=== PATIENT | female | born 1990 | race Caucasian/White ===

== ENCOUNTER 2020-01-06 21:54 | Emergency (ER) | payer BC, SELFPAY ==
[2020-01-06 22:09] VITALS: BP 175/91; PULSE 127; RESP 16; TEMP 37.1; BMI 42.7
--- NOTE | 2020-01-06 22:27 | US_ITS ---
WS: [id number] EARLY OBSTETRICAL ULTRASOUND (<14 WEEKS). HISTORY: heavy bleeding at 11 weeks COMPARISON: None available. Uterus is anteverted and slightly enlarged. No intrauterine gestation identified. The endometrium is thickened and heterogeneous measuring 2.2 cm. There is increased complex material in the cervix consistent with retained products of conception and bleeding. Both ovaries are normal size. Small amount of free fluid in the cul-de-sac. US/US OB <=14 wk fetus w transvag IMPRESSION: 1. Findings consistent with incomplete spontaneous . No gestational sa c or pole. 2. Retained products of the conception and blood products within the endometri um and cervical canal.
--- NOTE | 2020-01-06 22:28 | W.ED.PREGNAN ---
HPI - General: Chief complaint: Vaginal Bleeding Stated complaint: possible miscarriage/11 weeks Time Seen by Provider: 01/06/20 22:18 History of Present Illness: HPI Narrative: Patient with history of PCOS hypertension started with bleeding today want to see her physician they did not do an ultrasound but the bleeding was not enough to really matter and then patient started having heavy bleeding this evening and comes into the ER patient did receive RhoGam shot at the office today because she is O- MD Complaint: vaginal bleeding Onset (ago): hour(s) Severity: moderate Quality: Cramping Radiation: abdomen Vaginal bleeding: heavy Date of Last Menstrual Period: 10/21/19 Patient : Yes OB History - Current : hypertension and other (PCOS) care: followed by OB Associated symptoms: Reports no associated symptoms; Deny abdominal pain, headache(s), nausea or vomiting Review of Systems Const: Denies: fever(s), chills or body aches Eyes: Denies: change in vision or blurry vision ENMT: Denies: throat pain or nasal congestion Card: Denies: chest pain or dyspnea on exertion Resp: Denies: dyspnea, productive cough or non-productive cough GI: Denies: abdominal pain, nausea or vomiting : Reports: vaginal bleeding Musc: Denies: extremity pain Skin/Breast: Denies: rash Neuro: Denies: headache(s) Psych: Denies: anxiety or depression [place]/Lymph: Denies: easy bruising PFSH ED PFSH: Social History Smoking and tobacco status: current some day smoker Female Reproductive History: Date of last menstrual period: 10/21/19 Physical Exam Const: COMMON NORMALS: no acute distress, average body habitus and patient oriented x3 HENMT: COMMON NORMALS: normocephalic HEAD & SCALP: normal to inspection and normocephalic FACE & SINUS: normal facial exam Eye: COMMON NORMALS: conjunctivae normal GENERAL EYE: appearance normal, both eyes and all related structures CONJUNCTIVA: Yes conjunctivae normal Neck/C-Spine: COMMON NORMALS: no JVD Chest: COMMONS NORMALS: normal inspection of the chest Resp: COMMON NORMALS: normal respiratory effort and clear to auscultation bilaterally AUSCULTATION: clear to auscultation bilaterally Cardio: COMMON NORMALS: no JVD, regular rate and regular rhythm RATE: regular rate RHYTHM: regular rhythm GI: COMMON NORMALS: Normal to inspection, nondistended, normoactive bowel sounds present Extremity: COMMON NORMALS: normal to inspection and full ROM Neuro: COMMON NORMALS: patient oriented x3 Course Vital Signs: Vital signs: Vital Signs Temperature 98.8 F 01/06/20 22:09 Pulse Rate 138 H 01/06/20 23:33 Respiratory Rate 18 01/06/20 23:33 Blood Pressure 161/100 01/06/20 23:33 Pulse Oximetry 96 01/06/20 23:33 MDM - OB/Uterine Contractions MDM Narrative: Medical decision making narrative: blow mold technician says there is no baby in the womb there is no free fluid cervix is closed bleeding is diminishing discussed case Dr. Page Lab Data: Labs: Lab Results 01/06/20 01/06/20 Range/Units 22:30 22:30 WBC 14.4 H (4.0-10.0) 10^3/ uL RBC 4.60 (4.1-5.3) 10^6/u L Hgb 14.4 (11.5-15.3) g/dL Hct 41.5 (37.0-47.0) % MCV 90.2 (81-99) fL MCH 31.3 (28.0-34.0) pg MCHC 34.7 (30.0-36.0) g/dL RDW 12.0 L (12.1-15.1) % Plt Count 434 H (130-400) 10^3/c mm MPV 8.6 (7.4-10.4) fL Neut % (Auto) 62.4 % Lymph % (Auto) 30.4 % [place] % (Auto) 4.0 % Eos % (Auto) 2.0 % Baso % (Auto) 0.6 % Neut # (Auto) 9.0 H (1.8-7.7) 10^3/u L Lymph # (Auto) 4.4 (0.8-4.8) 10^3/u L [place] # (Auto) 0.6 (0.2-0.9) 10^3/u L Eos # (Auto) 0.3 (0.0-0.8) 10^3/u L Baso # (Auto) 0.1 (0.0-0.1) 10^3/u L Nucleated RBC % (a uto) 0 % Nucleated RBCs # 0.0 /100WBC Ser , Karin i-Qnt 2496.00 mIU/mL Discharge Plan Discharge Patient Disposition: Home, Self-Care Clinical Impression: Miscarriage Condition: Stable Prescriptions: No Action metformin 1,000 mg Tablet 1,000 mg PO BID RF: 0 Prozac 20 mg Capsule 20 mg PO DAILY RF: 0 Prevacid 15 mg Capsule,Delayed Release(Dr/Ec) 15 mg PO DAILY RF: 0 PNV cmb#[id number]-[id number] fumarate-FA [] 28 mg iron- 800 mcg Tablet 1 tab PO DAILY RF: 0 Discharge Orders: Discharge Order (Routine); Ordered 01/06/20 Ordered By: Fadi Argueta Discharge Diet: Usual diet Discharge Activity: Increase activity as tolerated Patient Instructions: Spontaneous Miscarriage (ED) Activity Restrictions/Additional Instructions: Follow-up with your OB doctor in the morning. Coding Level of Care Code ED [employer] for Devin Fwd Exam Comprehensive
[2020-01-06 22:34] LABS: Basophils # 0.1 10^3/uL (0.0-0.1); Basophils % 0.6 %; Eosinophils # 0.3 10^3/uL (0.0-0.8); Hematocrit 41.5 % (37.0-47.0); Hemoglobin 14.4 g/dL (11.5-15.3); Lymphocytes # 4.4 10^3/uL (0.8-4.8); Lymphocytes % 30.4 %; Mean Corpuscular HGB Conc 34.7 g/dL (30.0-36.0); Mean Corpuscular Hemoglobin 31.3 pg (28.0-34.0); Mean Corpuscular Volume 90.2 fL (81-99); Mean Platelet Volume 8.6 fL (7.4-10.4); Monocytes # 0.6 10^3/uL (0.2-0.9); Neutrophils % 62.4 %; Nucleated Red Blood Cells % 0 %; Platelet Count 434 10^3/cmm (130-400); White Blood Count 14.4 10^3/uL (4.0-10.0)
[2020-01-06 23:33] VITALS: BP 161/100; PULSE 138; RESP 18; O2SAT 96
[2020-01-06 23:41] LABS: Urine Appearance Cloudy (CLEAR); Urine Color Red (Yellow)
[2020-01-07] LABS: Add Urine Culture? Yes; Add Urine Microscopic? YES; Bacteria Urine 1+; Bilirubin Urine Neg (NEGATIVE); Blood Urine 3+ (Negative); Glucose Urine UA 2+ (Normal); Ketones Urine Negative (Negative); Leukocyte Esterase Urine Negative (Negative); Nitrate Urine Negative (Negative); Protein Urine 3+ (Negative); RBC Urine >100 /hpf (0-2); Squamous Epithelial Cell Urine 0-4 (0-5); Urobilinogen Urine Norm (Negative); pH Urine 6 (5-7)
== END 2020-01-06 23:39 | disposition home or self-care (01) ==
PROVIDERS: Emergency Medicine; Emergency Provider Nurse Practitioner Family
DX: O03.9 Complete or unspecified spontaneous abortion without complication (principal); O99.331 Smoking (tobacco) complicating pregnancy, first trimester; F17.210 Nicotine dependence, cigarettes, uncomplicated; Z3A.11 11 weeks gestation of pregnancy
CPT/HCPCS: 12345; 36415; 76801; 76817; 81001; 81003; 84702; 85025; 86900; 87086; 99281; 99283

== ENCOUNTER 2022-09-04 16:48 | Emergency (ER) | payer OTHER, SELFPAY ==
[2022-09-04 16:54] VITALS: BP 180/113; PULSE 126; RESP 18; TEMP 36.7; O2SAT 98; BMI 40.6
--- NOTE | 2022-09-04 17:34 | USR_ITS ---
PROCEDURE INFORMATION: Exam: US First Trimester, Transabdominal and US , Transvaginal Exam date and time: 09/04/2022 5:55 PM Age: 31 years old Clinical indication: Lmp or gestational age (in weeks): 9w5d; Antepartum complications; Bleeding; ; Additional info: Vaginal bleeding LABS AND CLINICAL REPORTS: Serum Choriogonadotropin (HCG): 57067 mIU/mL Last menstrual period start date: 06/30/2022 Gestational age (Established): 9 w 3 d Estimated due date (Established): 04/06/2023 TECHNIQUE: Imaging protocol: Real-time transabdominal obstetrical ultrasound of the maternal pelvis and a first trimester , less than 14 weeks 0 days, with image documentation. Transvaginal imaging was used for better evaluation of the fetus, adnexa, and/or cervix. COMPARISON: US OB <=14 wk fetus w transvag 01/06/2020 11:01 PM FINDINGS: Gestation: Intrauterine gestation is visualized. pole is visualized. No yolk sac is visualized. Embryonic/ heart rate: 122 bpm Extra-embryonic membranes/Placenta: Unremarkable. No subchorionic bleed. Amniotic fluid: Amniotic fluid and extra-amniotic fluid is normal for gestational age. BIOMETRY: Gestational age (AUA): 9 w 5 d [place]-Rump length (CRL): 28.2 mm. EGA (CRL) is 9 w 5 d MATERNAL: Uterus: Uterus measures 11.5 cm x 6.1 cm x 4.8 cm. Cervix: Cervical length measures 3.6 cm. Right ovary/adnexa: Right ovary measures 3.1 cm x 2 cm x 1.4 cm. Right ovarian volume is 4.5 mL. Left ovary/adnexa: Left ovary measures 5.4 cm x 5.4 cm x 3.3 cm. Left ovarian volume is 50.8 mL. There is a 4.4 x 3.4 x 4.3 cm simple appearing cyst in the left ovary. Intraperitoneal space: No intraperitoneal free fluid. US/US OB <= 14 weeks fetus [id number] IMPRESSION: Single live intrauterine fetus. Estimated gestational age by ultrasound is 9 weeks and 5 days.
[2022-09-04] MEDS: sodium chloride 0.9% 1,000 ML 999 ML IV (17:45)
[2022-09-04 17:47] LABS: Basophils # 0.1 10^3/uL (0.0-0.1); Basophils % 0.6 %; Eosinophils # 0.3 10^3/uL (0.0-0.8); Eosinophils % 2.6 %; Hemoglobin 14.8 g/dL (11.5-15.3); Lymphocytes # 3.2 10^3/uL (0.8-4.8); Lymphocytes % 25.2 %; Mean Corpuscular HGB Conc 34.4 g/dL (30.0-36.0); Mean Corpuscular Hemoglobin 30.8 pg (28.0-34.0); Mean Corpuscular Volume 89.4 fl (81-99); Monocytes # 0.5 10^3/uL (0.2-0.9); Monocytes % 3.9 %; Neutrophils # 8.59 10^3/uL (1.8-7.7); Neutrophils % 67.2 %; Nucleated Red Blood Cells % 0 %; Platelet Count 458 10^3/cmm (130-400); Red Blood Count 4.81 10^6/uL (4.1-5.3); Red Cell Distribution Width 11.9 % (12.1-15.1); White Blood Count 12.8 10^3/uL (4.0-10.0)
--- NOTE | 2022-09-04 17:50 | ED_ITS ---
HPI - Female Genitourinary General: Chief complaint: Vaginal Bleeding Stated complaint: vaginal bleeding, 9 weeks Time Seen by Provider: 09/04/22 16:56 Source: patient Mode of arrival: ambulatory Limitations: no limitations History of Present Illness: This 31-year-old lady who conceived by IVF presents to the ER with vaginal spotting that started on Monday (2 days ago). She is G2, P0 +1. She is currently 9 weeks and 3 days. On Monday when spotting started, ultrasound confirmed an intrauterine with tones. About an hour ago, bleeding worsened, prompting patient to come to the ER for evaluation. She is blood type O- and has not received RhoGAM with this . She has nausea that is associated with but no vomiting. Patient denies fever, dysuria, shortness of breath or any other pertinent systemic symptoms. Date of Last Menstrual Period: 10/21/19 Review of Systems General: Reports: 10 or more systems reviewed and unremarkable except in HPI and below : Reports: vaginal bleeding PFS ED PFSH: Social History Smoking and tobacco status: current some day smoker Female Reproductive History: Date of last menstrual period: 10/21/19 Physical Exam Const: COMMON NORMALS: no acute distress, patient oriented x3, no limitations and alert OTHER: Tearful Chest: COMMONS NORMALS: normal inspection of the chest Resp: COMMON NORMALS: normal respiratory effort, No retractions, No use of accessory muscles and clear to auscultation bilaterally AUSCULTATION: clear to auscultation bilaterally Cardio: COMMON NORMALS: regular rate, regular rhythm and No murmurs present (Cardio) RATE: regular rate RHYTHM: regular rhythm GI: COMMON NORMALS: Normal to inspection, nondistended, normoactive bowel sounds present and non-tender : COMMON NORMALS: Yes no CVA tenderness BLADDER/KIDNEY EXAM: Yes no CVA tenderness Back/Pelvis: COMMON NORMALS: no CVA tenderness and no thoracic nor lumbar tenderness Extremity: GENERAL: Yes normal exam except as noted Neuro: COMMON NORMALS: patient oriented x3 and no focal motor deficits SENSORIUM/ORIENTATION: Yes alert Psych: COMMON NORMALS: mental status grossly normal and cooperative Course Vital Signs: Vital signs: Vital Signs Temperature 98.1 F 09/04/22 16:54 Pulse Rate 126 H 09/04/22 16:54 Respiratory Rate 18 09/04/22 16:54 Blood Pressure 180/113 09/04/22 16:54 Pulse Oximetry 98 09/04/22 16:54 Oxygen Delivery Me thod 09/04/22 16:54 MDM - Female Medical Decision Making Medical decision making: Patient presents to the ER because of vaginal bleeding that worsened an hour prior to arrival. She is about 9 weeks 3 days . She is blood type O- so RhoGAM was administered. Obstetric ultrasound confirms intrauterine at about 9 weeks +5 days. heart tone is 122. Patient was reassured and advised to take it easy and maintain adequate fluid intake. 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 Reasons to return were discussed. Patient verbalized understanding and agrees with the plan. Lab Data 09/04/22 17:33 09/04/22 17:33 Radiology Impressions Ultrasound 09/04/22 17:34 IMPRESSION: Single live intrauterine fetus. Estimated gestational age by ultrasound is 9 weeks and 5 days. Laboratory Results WBC 12.8 10^3/uL (4.0-10.0) H 09/04/22 17: RBC 4.81 10^6/uL (4.1-5.3) 09/04/22 17:33 Hgb 14.8 g/dL (11.5-15.3) 09/04/22 17: Hct 43.0 % (37.0-47.0) 09/04/22 17: MCV 89.4 fl (81-99) 09/04/22 17: MCH 30.8 pg (28.0-34.0) 09/04/22 17: MCHC 34.4 g/dL (30.0-36.0) 09/04/22 17: RDW 11.9 % (12.1-15.1) L 09/04/22 17: Plt Count 458 10^3/cmm (130-400) H 09/04/22 17: MPV 9.0 fL (7.4-10.4) 09/04/22 17: Neut % (Auto) 67.2 % 09/04/22 17: Lymph % (Auto) 25.2 % 09/04/22 17: [place] % (Auto) 3.9 % 09/04/22 17: Eos % (Auto) 2.6 % 09/04/22 17:33 Baso % (Auto) 0.6 % 09/04/22 17:33 Neut # (Auto) 8.59 10^3/uL (1.8-7.7) H 09/04/22 17:33 Lymph # (Auto) 3.2 10^3/uL (0.8-4.8) 09/04/22 17:33 [place] # (Auto) 0.5 10^3/uL (0.2-0.9) 09/04/22 17:33 Eos # (Auto) 0.3 10^3/uL (0.0-0.8) 09/04/22 17: Baso # (Auto) 0.1 10^3/uL (0.0-0.1) 09/04/22 17:33 Nucleated RBC % (auto) 0 % 09/04/22 17: Nucleated RBCs # 0.0 /100WBC 09/04/22 17:33 Sodium 135 mmol/L (136-145) L 09/04/22 17:33 Potassium 3.7 mmol/L (3.5-5.1) 09/04/22 17:33 Chloride 99 mmol/L (98-107) 09/04/22 17:33 Carbon Dioxide 22 mmol/L (22-29) 09/04/22 17:33 Anion Gap 17.7 (5-19) 09/04/22 17:33 BUN 6 mg/dL (6-20) 09/04/22 17:33 Creatinine 0.5 mg/dL (0.5-0.9) 09/04/22 17:33 GFR Calculation 142.1 mL/min (90-130) H 09/04/22 17:33 Glucose 232 mg/dL (65-115) H 09/04/22 17:33 Calculated Osmolality 285 mOsm/kg (285-295) 09/04/22 17:33 Calcium 9.7 mg/dL (8.5-10.5) 09/04/22 17:33 Total Bilirubin 0.4 mg/dL (0.15-1.2) 09/04/22 17:33 AST 16 U/L (0-32) 09/04/22 17:33 ALT 18 U/L (0-33) 09/04/22 17:33 Alkaline Phosphatase 92 U/L (35-105) 09/04/22 17:33 Total Protein 6.9 g/dL (6.6-8.7) 09/04/22 17:33 Albumin 4.3 g/dL (3.5-5.2) 09/04/22 17:33 Globulin 2.6 g/dL (1.3-4.6) 09/04/22 17:33 Ser , Semi-Qnt 89894.00 mIU/mL 09/04/22 17:33 Urine Color Red (Yellow) 09/04/22 18:30 Urine Appearance Cloudy (CLEAR) A 09/04/22 18:30 Urine pH 5 (5-7) 09/04/22 18:30 Ur Specific [place] 1.020 (1.005-1.030) 09/04/22 18:30 Urine Protein 2+ (Negative) H 09/04/22 18:30 Urine Glucose (UA) 2+ (Normal) H 09/04/22 18:30 Urine Ketones Negative (Negative) 09/04/22 18:30 Urine Blood 3+ (Negative) H 09/04/22 18:30 Urine Nitrate Negative (Negative) 09/04/22 18:30 Urine Bilirubin Neg (Negative) 09/04/22 18:30 Urine Urobilinogen Neg mg/dL (Negative) 09/04/22 18:30 Ur Leukocyte Esterase Trace (Negative) H 09/04/22 18:30 Urine RBC Too numerous to cnt /hpf (0-2) H 09/04/22 18:30 Urine WBC 0-4 /hpf (0-5) H 09/04/22 18:30 Ur Squamous Epith Cells 0-4 /hpf (0-5) H 09/04/22 18:30 Amorphous Sediment Not Reportable 09/04/22 18:30 Urine Bacteria Trace /hpf (NONE) 09/04/22 18:30 Urine Mucus Trace /hpf 09/04/22 18:30 Blood Type O Negative 09/04/22 17:56 Rho(D) Type Negative 09/04/22 17:56 Antibody Screen Negative 09/04/22 17:56 Discharge Plan Discharge Patient Disposition: Home Clinical Impression: Miscarriage, threatened, early Condition: Stable Prescriptions: No Action metformin 1,000 mg Tablet 1,000 mg PO BID fluoxetine [Prozac] 20 mg Capsule 20 mg PO DAILY lansoprazole [Prevacid] 15 mg Capsule,Delayed Release(Dr/Ec) 15 mg PO DAILY PNV cmb#95-ferrous fumarate-FA [] 28 mg iron- 800 mcg Tablet 1 tab PO DAILY labetalol 100 mg tablet 100 mg PO BID Vitamin D3 25 mcg (1,000 unit) Capsule 25 mcg PO DAILY Discharge Orders: Discharge ED (Routine); Ordered 09/04/22 Ordered By: Teddy Harrington Referrals: Altagracia Branham FNP [Primary Care Provider] - Discharge Diet: Usual diet Patient Instructions: Opioid Safety, Pain Management Activity Restrictions/Additional Instructions: Rest. Maintain adequate fluid intake. Follow-up with your van owner operator as already scheduled. Return if bleeding worsens or you develop any new concerning symptoms. Coding Level of Care Code ED Risk Control Representative for Devin Fwdeanne Exam Comprehensive
[2022-09-04 18:16] LABS: Alanine Aminotransferase 18 U/L (0-33); Albumin Level 4.3 g/dL (3.5-5.2); Alkaline Phosphatase 92 U/L (35-105); Anion Gap 17.7 (5-19); Aspartate Amino Transferase 16 U/L (0-32); Blood Urea Nitrogen 6 mg/dL (6-20); Calcium 9.7 mg/dL (8.5-10.5); Carbon Dioxide 22 mmol/L (22-29); Chloride 99 mmol/L (98-107); Globulin 2.6 g/dL (1.3-4.6); Glomerular Filtration Rate 142.1 mL/min (90-130); Glucose 232 mg/dL (65-115); Osmolality Calculated 285 mOsm/kg (285-295); Potassium 3.7 mmol/L (3.5-5.1); Sodium 135 mmol/L (136-145); Total Bilirubin 0.4 mg/dL (0.15-1.2); Total Protein 6.9 g/dL (6.6-8.7)
[2022-09-04 19:00] LABS: Add Urine Microscopic? YES; Bilirubin Urine Neg (Negative); Blood Urine 3+ (Negative); Glucose Urine UA 2+ (Normal); Ketones Urine Negative (Negative); Leukocyte Esterase Urine Trace (Negative); Nitrate Urine Negative (Negative); Protein Urine 2+ (Negative); Urine Appearance Cloudy (CLEAR); Urine Color Red (Yellow); Urobilinogen Urine Neg (Negative); pH Urine 5 (5-7)
[2022-09-04 19:01] LABS: RBC Urine TOO NUMEROUS TO CNT /hpf (0-2)
[2022-09-04 19:05] LABS: Add Urine Culture? Yes; Bacteria Urine TRACE /hpf; Mucus Urine TRACE /hpf; Squamous Epithelial Cell Urine 0-4 /hpf (0-5); WBC Urine 0-4 /hpf (0-5)
[2022-09-04 20:15] VITALS: BP 158/86; RESP 15; TEMP 36.8; O2SAT 97
[2022-09-04 20:21] VITALS: BP 158/84; PULSE 102; RESP 15; TEMP 36.8; O2SAT 97
== END 2022-09-04 20:22 | disposition home or self-care (01) ==
PROVIDERS: Emergency Provider Family Medicine; PCP Nurse Practitioner Family
DX: O20.0 Threatened abortion (principal); Z3A.09 9 weeks gestation of pregnancy; O99.331 Smoking (tobacco) complicating pregnancy, first trimester; F17.210 Nicotine dependence, cigarettes, uncomplicated; Z29.13 Encounter for prophylactic Rho(D) immune globulin
CPT/HCPCS: 36415; 36430; 76801; 80053; 81001; 84702; 85025; 86850; 86900; 87086; 90384; 99284; J7030